=== PATIENT | male | born 1955 | race Caucasian/White ===

== ENCOUNTER → 2017-08-27 | Outpatient (CLI) | payer OTHER | LOC: FCPNEURO 20:00 | PROVIDERS: ATTEND Psychiatry & Neurology Sleep Medicine | DX: G47.33 Obstructive sleep apnea (adult) (pediatric) (principal) ==

== ENCOUNTER 2018-08-03 11:56 | Emergency (ER) | payer OTHER ==
--- NOTE | 2018-08-03 12:21 | EDPHY ---
H & P Time Seen by Provider: 08/03/18 12:20 HPI/ROS: CHIEF COMPLAINT: Dizzy and lightheaded at the dentist HISTORY OF PRESENT ILLNESS: Patient was the dentist today getting a cavity taking care of and a crown. As the procedure was ending he woke and felt very dizzy and lightheaded when he sat up. He was sweaty and felt like he might faint or pass out. Denies chest pain or shortness of breath. Feels a little bit better now but still has symptoms. Denies vertigo or room spinning. No ear symptoms. Denies neck pain. REVIEW OF SYSTEMS: Eye: no change in vision ENT: Left side of his face still numb after the dental procedure Cardiac: No chest pain Pulmonary: no cough or SOB Abdomen: no vomiting, diarrhea, abdominal pain Musculoskeletal: no back pain Skin: no rash Neuro: no headache Constitutional: no fever : no urinary symptoms A comprehensive 10 point review of systems is otherwise negative aside from elements mentioned in the history of present illness. PAST MEDICAL HISTORY: Hypertension and hypothyroid Social history: Nonsmoker General Appearance: Alert and conversant, cooperative. Eyes: No scleral icterus. Pupils equal reactive extraocular motion intact. ENT, Mouth: Normal mucous membranes. Respiratory: Normal respiratory effort, breath sounds equal, lungs are clear to auscultation. Cardiovascular: Regular rate and rhythm. No murmur. Gastrointestinal: Abdomen is soft and non tender. Neurological: Alert, face symmetric, normal motor and sensory in extremities. Normal [id number] bilaterally and no pronator drift. Fluent speech. Skin: Warm and dry, no rashes. Musculoskeletal: No peripheral edema. Psychiatric: Not agitated. Emergency Department course/MDM: Patient presents with likely vasovagal symptoms and near syncope. He does not have symptoms of vertigo and I think that malignant dysrhythmia or vascular dissection or cerebellar problem are all unlikely. Normal saline IV, CBC and chemistry. 1341: Alert ambulatory, symptoms not present at this time. I think it is reasonable to discharge the patient, he is in agreement. Smoking Status: Never smoked Constitutional: Initial Vital Signs Temperature (C) 36.3 C 08/03/18 11:57 Heart Rate 63 08/03/18 11:57 Respiratory Rate 16 08/03/18 11:57 Blood Pressure 128/77 H 08/03/18 11:57 O2 Sat (%) 97 08/03/18 11:57 O2 Delivery Mode Room Air Allergies/Adverse Reactions: alcohol Allergy (Unknown, Verified 08/26/11 13:39) Unknown Home Medications: Medication Instructions Recorded Aspirin [Aspirin 81mg (OTC)] 81 mg PO DAILY 08/25/11 ESOMEPRAZOLE MAG TRIHYDRATE 40 mg PO DAILY 08/25/11 [NEXIUM] Levothyroxine [Synthroid 125 mcg 125 mcg PO .TUTHSASU 08/25/11 (RX)] Levothyroxine [Synthroid 150 mcg 150 mcg PO MOWEFR 08/25/11 (RX)] Milk Thistle Fruit Extract [Milk 175 mg PO DAILY 08/25/11 Thistle 175 mg] Pharmacy Completed 08/25/11 08/25/11 Rosuvastatin Calcium [Crestor 40mg 40 mg PO DAILY 08/25/11 (RX)] amLODIPine BESYLATE [Norvasc (RX)] 10 mg PO DAILY 08/25/11 Medical Decision Making - Diagnostics EKG Interpretation: 12-lead EKG interpreted by me; official reading is in computer system. My interpretation is sinus rhythm age 57, inferior Q-waves noted Differential Diagnosis: Differential considered including but not limited to hypoglycemia, dehydration, vasovagal episode, dysrhythmia. - Data Points Laboratory Results: Laboratory Results 08/03/18 12:51 08/03/18 12:01 08/03/18 08/03/18 12:51 12:01 WBC 7.72 10^3/uL 10^3/uL (3.80-9.50) RBC 4.73 10^6/uL 10^6/uL (4.40-6.38) Hgb 14.7 g/dL g/dL (13.7-17.5) Hct 40.9 % % (40.0-51.0) MCV 86.5 fL fL (81.5-99.8) MCH 31.1 pg pg (27.9-34.1) MCHC 35.9 g/dL g/dL (32.4-36.7) RDW 13.2 % % (11.5-15.2) Plt Count 160 10^3/uL 10^3/uL (150-400) MPV 11.4 fL fL (8.7-11.7) Neut % (Auto) 78.1 % H % (39.3-74.2) Lymph % (Auto) 11.1 % L % (15.0-45.0) [place] % (Auto) 8.9 % % (4.5-13.0) Eos % (Auto) 1.0 % % (0.6-7.6) Baso % (Auto) 0.6 % % (0.3-1.7) Nucleat RBC Rel Count 0.0 % % (0.0-0.2) Absolute Neuts (auto) 6.02 10^3/uL 10^3/uL (1.70-6.50) Absolute Lymphs (auto) 0.86 10^3/uL L 10^3/uL (1.00-3.00) Absolute Monos (auto) 0.69 10^3/uL 10^3/uL (0.30-0.80) Absolute Eos (auto) 0.08 10^3/uL 10^3/uL (0.03-0.40) Absolute Basos (auto) 0.05 10^3/uL 10^3/uL (0.02-0.10) Absolute Nucleated RBC 0.00 10^3/uL 10^3/uL (0-0.01) Immature Gran % 0.3 % % (0.0-1.1) Immature Gran # 0.02 10^3/uL 10^3/uL (0.00-0.10) Sodium 137 mEq/L mEq/L (135-145) Potassium 4.1 mEq/L mEq/L (3.5-5.2) Chloride 103 mEq/L mEq/L (97-110) Carbon Dioxide 24 mEq/l mEq/l (22-31) Anion Gap 10 mEq/L mEq/L (6-14) BUN 16 mg/dL mg/dL (7-23) Creatinine 1.0 mg/dL mg/dL (0.7-1.3) Estimated GFR > 60 Glucose 132 mg/dL H mg/dL (70-100) Calcium 9.8 mg/dL mg/dL (8.5-10.4) Medications Given: Discontinued Medications Sodium Chloride (Ns) 1,000 mls @ 0 mls/hr IV EDNOW ONE; Wide Open PRN Reason: Protocol Stop: 08/03/18 12:36 Last Admin: 08/03/18 12:40 Dose: 1,000 mls Departure - Departure Disposition: Home, Routine, Self-Care Clinical Impression: Vasovagal syncope Condition: Good Instructions: Syncope (ED) Referrals: Ced Britton MD [Primary Care Provider] - As per Instructions
[2018-08-03] MEDS ORDERED: NS 1,000 ML IV ONE (12:35)
[2018-08-03 13:00] LABS: PLATELET COUNT 160 10^3/uL (150-400)
[2018-08-03 14:07] VITALS: BP 126/76
== END 2018-08-03 14:07 | disposition home or self-care (01) ==
LOC: EDUNIT#
DX: R55 Syncope and collapse (principal); E86.9 Volume depletion, unspecified; I10 Essential (primary) hypertension; E03.9 Hypothyroidism, unspecified